=== PATIENT | female | born 1950 | race African-American/Black ===

== ENCOUNTER 2019-06-12 23:29 | Emergency (ER) | payer OTHER, MEDICARE ==
[~2019-06-12] VITALS: Ht 162.6 cm; Wt 121.4 kg
--- NOTE | 2019-06-12 23:49 | PHYS DOC ---
Adult General Chief Complaint Chief Complaint: WEAKNESS/GENERALIZED HPI HPI 68-year-old female with underlying history of hypertension presents to the emergency department via EMS with weakness. Patient has known bilateral lower extremity chronic pain, recommended bilateral knee replacements. Patient is visiting from [place] as her mom is in the hospital on hospice. She states that she slid out of bed and was unable to get up. She states she's had weakness is been ongoing since her visit starting last Thursday she currently is using a walker at this time. She is alone. Patient denies any chest pain, shortness breath, nausea, vomiting. She denies any loss of consciousness or head injury today. Patient is on no blood thinning medications at this time. Nothing makes her pain better. Review of Systems Review of Systems Constitutional: Denies fever or chills [] Respiratory: Denies cough or shortness of breath [] Cardiovascular: No additional information not addressed in HPI [] GI: Denies abdominal pain, nausea, vomiting, bloody stools or diarrhea [] Musculoskeletal: bilateral knee pain, sciatic pain (chronic) Integument: Denies rash or skin lesions [] Neurologic: Denies headache, focal weakness or sensory changes [] All other systems were reviewed and found to be within normal limits, except as documented in this note. Current Medications Current Medications Current Medications Medications (Trade) Dose Ordered Sig/[facility] Start Time Stop Time Status Last Admin Dose Admin Clonidine HCl (Catapres) 0.1 mg 1X ONCE 06/13/19 01:45 06/13/19 02:16 DC 06/13/19 01:59 0.1 MG Ketorolac Tromethamine (Toradol 15mg Vial) 15 mg 1X ONCE 06/13/19 01:45 06/13/19 02:16 DC 06/13/19 01:59 15 MG Allergies Allergies Allergies Coded Allergies Type Severity Reaction Last Updated Verified Sulfa (Sulfonamide Antibiotics) Allergy Unknown 06/13/19 Yes Physical Exam Physical Exam Constitutional: Well developed, well nourished, no acute distress, non-toxic appearance. [] Cardiovascular:Heart rate regular rhythm, no murmur [] Lungs & Thorax: Bilateral breath sounds clear to auscultation [] Abdomen: Bowel sounds normal, soft, no tenderness, no masses, no pulsatile masses. [] Skin: Warm, dry, no erythema, no rash. [] Back: No tenderness, no CVA tenderness. [] Extremities: TTP bilateral knees, no edema. [] Neurologic: Alert and oriented X 3, no focal deficits noted. [] Psychologic: Affect normal, judgement normal, mood normal. [] Current Patient Data Vital Signs Vital Signs Date Time Temp Pulse Resp B/P (MAP) Pulse Ox O2 Delivery O2 Flow Rate FiO2 06/13/19 02:00 70 18 99 06/13/19 01:59 171/77 06/12/19 23:30 98.0 Room Air 98.0 Lab Values Laboratory Tests Test 06/12/19 23:45 06/13/19 01:47 White Blood Count 7.0 x10^3/uL (4.0-11.0) Red Blood Count 4.02 x10^6/uL (3.50-5.40) Hemoglobin 11.7 g/dL (12.0-15.5) L Hematocrit 35.2 % (36.0-47.0) L Mean Corpuscular Volume 88 fL (79-100) Mean Corpuscular Hemoglobin 29 pg (25-35) Mean Corpuscular Hemoglobin Concent 33 g/dL (31-37) Red Cell Distribution Width 15.5 % (11.5-14.5) H Platelet Count 208 x10^3/uL (140-400) Neutrophils (%) (Auto) 53 % (31-73) Lymphocytes (%) (Auto) 35 % (24-48) Monocytes (%) (Auto) 9 % (0-9) Eosinophils (%) (Auto) 2 % (0-3) Basophils (%) (Auto) 2 % (0-3) Neutrophils # (Auto) 3.7 x10^3/uL (1.8-7.7) Lymphocytes # (Auto) 2.4 x10^3/uL (1.0-4.8) Monocytes # (Auto) 0.6 x10^3/uL (0.0-1.1) Eosinophils # (Auto) 0.1 x10^3/uL (0.0-0.7) Basophils # (Auto) 0.1 x10^3/uL (0.0-0.2) Sodium Level 142 mmol/L (136-145) Potassium Level 3.9 mmol/L (3.5-5.1) Chloride Level 105 mmol/L (98-107) Carbon Dioxide Level 27 mmol/L (21-32) Anion Gap 10 (6-14) Blood Urea Nitrogen 23 mg/dL (7-20) H Creatinine 1.3 mg/dL (0.6-1.0) H Estimated GFR (Cockcroft-Gault) 41.0 BUN/Creatinine Ratio 18 (6-20) Glucose Level 106 mg/dL (70-99) H Calcium Level 9.1 mg/dL (8.5-10.1) Total Bilirubin 0.2 mg/dL (0.2-1.0) Aspartate Amino Transferase (AST) 16 U/L (15-37) Alanine Aminotransferase (ALT) 9 U/L (14-59) L Alkaline Phosphatase 84 U/L (46-116) Total Protein 6.7 g/dL (6.4-8.2) Albumin 3.5 g/dL (3.4-5.0) Albumin/Globulin Ratio 1.1 (1.0-1.7) Urine Collection Type U cath Urine Color Yellow Urine Clarity Clear Urine pH 7.5 Urine Specific [place] 1.010 Urine Protein Negative mg/dL (NEG-TRACE) Urine Glucose (UA) Negative mg/dL (NEG) Urine Ketones (Stick) Negative mg/dL (NEG) Urine Blood Negative (NEG) Urine Nitrite Negative (NEG) Urine Bilirubin Negative (NEG) Urine Urobilinogen Dipstick 0.2 mg/dL (0.2 mg/dL) Urine Leukocyte Esterase Negative (NEG) Urine RBC 1-2 /HPF (0-2) Urine WBC Occ /HPF (0-4) Urine Squamous Epithelial Cells Few /LPF Urine Bacteria 0 /HPF (0-FEW) Urine Mucus Slight /LPF Laboratory Tests 06/12/19 23:45 Laboratory Tests 06/12/19 23:45 EKG EKG EKG reviewed, heart rate 73, normal sinus rhythm, normal axis, no STEMI interpretation time 2345[] Radiology/Procedures Radiology/Procedures [] Course & Med Decision Making Course & Med Decision Making Pertinent Labs and Imaging studies reviewed. (See chart for details) []68-year-old female with underlying history of hypertension presents to the emergency department via EMS with weakness. Patient has known bilateral lower extremity chronic pain, recommended bilateral knee replacements. Patient is visiting from [place] as her mom is in the hospital on hospice. She states that she slid out of bed and was unable to get up. She states she's had weakness is been ongoing since her visit starting last Thursday she currently is using a walker at this time. She is alone. Patient denies any chest pain, shortness breath, nausea, vomiting. She denies any loss of consciousness or head injury today. Patient is on no blood thinning medications at this time. Nothing makes her pain better. Labs/Imaging reviewed No evidence of acute fracture This is acute on chronic pain. Imaging negative as thania Family is concerned that she is not taking medications and they would like intervention in the ER Unfortunately, there is no medical reason to admit patient. I recommended family [place] are concerned for her safety however patient remains able to make her own decisions. She is currently at a hotel staying. Patient currently using walker for ambulation. Recommend continuing her home medications as prescribed Recommend if family is concerned of patient taking medications or not, they will need to intervene on their own. That is not a reason to admit patient to the hospital Recommend dc - patient is safe for dc her sliding out of the bed tonight has produced no new injury Dragon Disclaimer Dragon Disclaimer This electronic medical record was generated, in whole or in part, using a voice recognition dictation system. Departure Departure Impression: Primary Impression: Fall Additional Impressions: Hypertension Chronic pain Disposition: HOME, SELF-CARE Condition: STABLE Patient Instructions: Chronic Pain, Hypertension Additional Instructions: Recommend dc home Recommend continuing home medications as prescribed Patient has pain medications already prescribed Xray of left hip/pelvis negative Problem Qualifiers Primary Impression: Fall Encounter type: initial encounter Qualified Codes: W19.XXXA - Unspecified fall, initial encounter Additional Impressions: Hypertension Hypertension type: essential hypertension Qualified Codes: I10 - Essential (primary) hypertension Chronic pain Chronic pain type: chronic pain syndrome Qualified Codes: G89.4 - Chronic pain syndrome JOSE GUADALUPE ORO MD Jun 12, 2019 23:49
[2019-06-12 23:58] LABS: BASO # 0.1 x10^3/uL (0.0-0.2); BASO % 2 % (0-3); EOS # 0.1 x10^3/uL (0.0-0.7); EOS % 2 % (0-3); HEMATOCRIT 35.2 % (36.0-47.0); HEMOGLOBIN 11.7 g/dL (12.0-15.5); LYMPH # 2.4 x10^3/uL (1.0-4.8); LYMPH % 35 % (24-48); MEAN CORPUSCULAR HEMOGLOBIN 29 pg (25-35); MEAN CORPUSCULAR HGB CONC 33 g/dL (31-37); MEAN CORPUSCULAR VOLUME 88 fL (79-100); MONO # 0.6 x10^3/uL (0.0-1.1); MONO % 9 % (0-9); NEUT # 3.7 x10^3/uL (1.8-7.7); NEUT % 53 % (31-73); PLATELET COUNT 208 x10^3/uL (140-400); RED BLOOD COUNT 4.02 x10^6/uL (3.50-5.40); RED CELL DISTRIBUTION WIDTH 15.5 % (11.5-14.5)
[2019-06-13 00:04] LABS: CALCIUM 9.1 mg/dL (8.5-10.1); CREATININE 1.3 mg/dL (0.6-1.0); POTASSIUM 3.9 mmol/L (3.5-5.1)
[2019-06-13 00:10] LABS: ALBUMIN 3.5 g/dL (3.4-5.0); ALBUMIN/GLOBULIN RATIO 1.1 (1.0-1.7); TOTAL BILIRUBIN 0.2 mg/dL (0.2-1.0); TOTAL PROTEIN 6.7 g/dL (6.4-8.2)
--- NOTE | 2019-06-13 00:18 | RAD ---
HIP LEFT 1 VIEW WITH PELVIS Clinical Indication: Fall, pain. Comparison: None. Findings: There is no acute fracture or dislocation of the left hip. Mild arthropathy of the hips for patient age. Mineralization appears normal. No acute pelvic fracture is identified. Multiple phleboliths in the pelvis. IMPRESSION: No acute fracture. Electronically signed by: oRnal Dias MD (06/13/2019 12:16 AM) [id number]
[2019-06-13] MEDS ORDERED: KETOROLAC 15 MG/ML VIAL. IVP ONE (01:45)
[2019-06-13] MEDS ORDERED: cloNIDine HCL 0.1 MG TABLET PO ONE (01:45)
[2019-06-13 02:05] LABS: BILIRUBIN,URINE NEGATIVE (NEG); CLARITY,URINE CLEAR; COLOR,URINE YELLOW; NITRITE,URINE NEGATIVE (NEG); PH,URINE 7.5; PROTEIN,URINE NEGATIVE (NEG-TRACE); UROBILINOGEN,URINE 0.2 mg/dL (0.2 mg/dL)
[2019-06-13 02:26] LABS: BACTERIA,URINE 0 /HPF (0-FEW); SQUAMOUS EPITHELIAL CELL,UR FEW /LPF; WBC,URINE OCC /HPF (0-4)
[2019-06-13 02:45] VITALS: BP 115/54
--- NOTE | 2019-06-13 06:39 | EKG ---
[facility] [address] [place] [address] Test Date: 2019-06-12 Test Time: 23:40:53 Pat Name: JEOVANY LAROSE Department: Room: Gender: F Yard Con[employer]: : 1950 Requested By: JOSE GUADALUPE ORO Order Number: [id number] Reading MD: Measurements Intervals [place] Rate: 73 P: 43 MD: 146 QRS: 31 QRSD: 82 T: 68 QT: 396 QTc: 440 Interpretive Statements SINUS RHYTHM QRS(T) CONTOUR ABNORMALITY CONSIDER INFERIOR MYOCARDIAL DAMAGE T ABNORMALITY IN HIGH LATERAL LEADS ABNORMAL ECG RI6.01 No previous ECG available for comparison
== END 2019-06-13 03:10 | disposition home or self-care (01) ==
LOC: ER 23:29
DX: G89.4 Chronic pain syndrome (principal); M25.562 Pain in left knee; M25.561 Pain in right knee; I10 Essential (primary) hypertension; R51 Headache; Z88.2 Allergy status to sulfonamides; Z98.890 Other specified postprocedural states; W18.39XA Other fall on same level, initial encounter; Y93.89 Activity, other specified; Y92.89 Other specified places as the place of occurrence of the external cause; Y99.8 Other external cause status
CPT/HCPCS: 36415; 73501; 80053; 81001; 85025; 93005; 96374; 99285; J1885